=== PATIENT | male | born 1955 | race Caucasian/White ===

== ENCOUNTER 2022-03-16 07:59 | Outpatient (CLI) | payer BC | END 2022-03-16 08:00 | disposition home or self-care (01) | LOC: CSHWCC 07:59 | PROVIDERS: ATTEND Nurse Practitioner Family | DX: L89.893 Pressure ulcer of other site, stage 3 (principal) | CPT/HCPCS: 11042; 99203; G0463 ==

== ENCOUNTER 2022-04-01 08:14 | Outpatient (CLI) | payer BC | END 2022-04-01 08:15 | disposition home or self-care (01) | LOC: CSHWCC 08:14 | PROVIDERS: ATTEND Nurse Practitioner Family | DX: L89.893 Pressure ulcer of other site, stage 3 (principal) | CPT/HCPCS: 11042 ==

== ENCOUNTER 2022-04-19 08:05 | Outpatient (CLI) | payer BC | END 2022-04-19 08:06 | disposition home or self-care (01) | LOC: CSHWCC 08:05 | PROVIDERS: ATTEND Nurse Practitioner Family | DX: L89.893 Pressure ulcer of other site, stage 3 (principal) | CPT/HCPCS: 11042; 99212; G0463 ==

== ENCOUNTER 2022-05-05 15:28 | Outpatient (CLI) | payer BC | END 2022-05-05 15:29 | disposition home or self-care (01) | LOC: CSHWCC 15:28 | PROVIDERS: ATTEND Nurse Practitioner Family | DX: L89.893 Pressure ulcer of other site, stage 3 (principal) ==

== ENCOUNTER 2022-05-23 08:08 | Outpatient (CLI) | payer BC | END 2022-05-23 08:09 | disposition home or self-care (01) | LOC: CSHWCC 08:08 | PROVIDERS: ATTEND Nurse Practitioner Family | DX: L89.893 Pressure ulcer of other site, stage 3 (principal) | CPT/HCPCS: 11042 ==

== ENCOUNTER 2022-07-04 08:03 | Outpatient (CLI) | payer BC | END 2022-07-04 08:04 | disposition home or self-care (01) | LOC: CSHWCC 08:03 | PROVIDERS: ATTEND Nurse Practitioner Family | DX: L89.893 Pressure ulcer of other site, stage 3 (principal) | CPT/HCPCS: 11042 ==

== ENCOUNTER 2022-08-24 09:07 | Outpatient (CLI) | payer MEDICARE, BC | END 2022-08-24 09:08 | disposition home or self-care (01) | LOC: CSHWCC 09:07 | PROVIDERS: ATTEND Nurse Practitioner Family | DX: L89.893 Pressure ulcer of other site, stage 3 (principal); S91.202D Unspecified open wound of left great toe with damage to nail, subsequent encounter | CPT/HCPCS: 29445 ==

== ENCOUNTER 2022-09-26 11:02 | Outpatient (CLI) | payer BC | END 2022-09-26 11:03 | disposition home or self-care (01) | LOC: CSHWCC 11:02 | PROVIDERS: ATTEND Nurse Practitioner Family | DX: L89.893 Pressure ulcer of other site, stage 3 (principal) | CPT/HCPCS: 97597; 99212; G0463 ==

== ENCOUNTER 2022-10-11 09:27 | Outpatient (CLI) | payer BC, MEDICARE | END 2022-10-11 09:28 | disposition home or self-care (01) | LOC: CSHWCC 09:27 | PROVIDERS: ATTEND Nurse Practitioner Family | DX: E11.621 Type 2 diabetes mellitus with foot ulcer (principal); L97.522 Non-pressure chronic ulcer of other part of left foot with fat layer exposed; S81.802S Unspecified open wound, left lower leg, sequela; R60.0 Localized edema | CPT/HCPCS: 11042; 87070; 87186; 87205; 99212; G0463 ==

== ENCOUNTER 2022-10-13 14:47 | Outpatient (CLI) | payer BC, MEDICARE | END 2022-10-13 14:48 | disposition home or self-care (01) | LOC: CSHWCC 14:47 | PROVIDERS: ATTEND Nurse Practitioner Family | DX: S81.802S Unspecified open wound, left lower leg, sequela (principal); R60.0 Localized edema; E11.621 Type 2 diabetes mellitus with foot ulcer; L97.522 Non-pressure chronic ulcer of other part of left foot with fat layer exposed | CPT/HCPCS: 11042; 99213; G0463 ==

== ENCOUNTER 2022-10-18 09:56 | Outpatient (CLI) | payer MEDICARE, BC | END 2022-10-18 09:57 | disposition home or self-care (01) | LOC: CSHWCC 09:56 | PROVIDERS: ATTEND Nurse Practitioner Family | DX: E11.621 Type 2 diabetes mellitus with foot ulcer (principal); S81.802S Unspecified open wound, left lower leg, sequela; L97.522 Non-pressure chronic ulcer of other part of left foot with fat layer exposed; R60.0 Localized edema | CPT/HCPCS: 29581 ==

== ENCOUNTER 2022-10-21 13:04 | Outpatient (CLI) | payer MEDICARE, BC | END 2022-10-21 13:05 | disposition home or self-care (01) | LOC: CSHWCC 13:04 | PROVIDERS: ATTEND Nurse Practitioner Family | DX: E11.621 Type 2 diabetes mellitus with foot ulcer (principal); R60.0 Localized edema; L97.522 Non-pressure chronic ulcer of other part of left foot with fat layer exposed; S81.802S Unspecified open wound, left lower leg, sequela | CPT/HCPCS: 29581 ==

== ENCOUNTER 2022-10-24 12:56 | Outpatient (CLI) | payer MEDICARE, BC | END 2022-10-24 12:57 | disposition home or self-care (01) | LOC: CSHWCC 12:56 | PROVIDERS: ATTEND Nurse Practitioner Family | DX: E11.621 Type 2 diabetes mellitus with foot ulcer (principal); S81.802S Unspecified open wound, left lower leg, sequela; R60.0 Localized edema; L97.522 Non-pressure chronic ulcer of other part of left foot with fat layer exposed | CPT/HCPCS: 29581 ==

== ENCOUNTER 2022-10-27 15:20 | Outpatient (CLI) | payer MEDICARE, BC | END 2022-10-27 15:21 | disposition home or self-care (01) | LOC: CSHWCC 15:20 | PROVIDERS: ATTEND Nurse Practitioner Family | DX: E11.621 Type 2 diabetes mellitus with foot ulcer (principal); R60.0 Localized edema; S81.802S Unspecified open wound, left lower leg, sequela; L97.522 Non-pressure chronic ulcer of other part of left foot with fat layer exposed | CPT/HCPCS: 11042; 29581 ==

== ENCOUNTER 2022-11-03 13:06 | Outpatient (CLI) | payer MEDICARE, BC | END 2022-11-03 13:07 | disposition home or self-care (01) | LOC: CSHWCC 13:06 | PROVIDERS: ATTEND Nurse Practitioner Family | DX: E11.621 Type 2 diabetes mellitus with foot ulcer (principal); R60.0 Localized edema; L97.522 Non-pressure chronic ulcer of other part of left foot with fat layer exposed; S81.802S Unspecified open wound, left lower leg, sequela | CPT/HCPCS: 11042; 29581 ==

== ENCOUNTER 2022-11-10 09:26 | Outpatient (CLI) | payer MEDICARE, BC | END 2022-11-10 09:27 | disposition home or self-care (01) | LOC: CSHWCC 09:26 | PROVIDERS: ATTEND Nurse Practitioner Family | DX: S81.802S Unspecified open wound, left lower leg, sequela (principal); E11.621 Type 2 diabetes mellitus with foot ulcer; L97.522 Non-pressure chronic ulcer of other part of left foot with fat layer exposed; R60.0 Localized edema | CPT/HCPCS: 11042; 29581 ==

== ENCOUNTER 2022-11-17 08:05 | Outpatient (CLI) | payer MEDICARE, BC | END 2022-11-17 08:06 | disposition home or self-care (01) | LOC: CSHWCC 08:05 | PROVIDERS: ATTEND Nurse Practitioner Family | DX: S81.802S Unspecified open wound, left lower leg, sequela (principal); E11.621 Type 2 diabetes mellitus with foot ulcer; L97.522 Non-pressure chronic ulcer of other part of left foot with fat layer exposed | CPT/HCPCS: 11042 ==

== ENCOUNTER 2022-11-24 08:13 | Outpatient (CLI) | payer MEDICARE, BC | END 2022-11-24 08:14 | disposition home or self-care (01) | LOC: CSHWCC 08:13 | PROVIDERS: ATTEND Nurse Practitioner Family | DX: E11.621 Type 2 diabetes mellitus with foot ulcer (principal); L97.522 Non-pressure chronic ulcer of other part of left foot with fat layer exposed; S81.802S Unspecified open wound, left lower leg, sequela; R60.0 Localized edema | CPT/HCPCS: 97597 ==

== ENCOUNTER 2022-12-01 08:13 | Outpatient (CLI) | payer MEDICARE, BC | END 2022-12-01 08:14 | disposition home or self-care (01) | LOC: CSHWCC 08:13 | PROVIDERS: ATTEND Nurse Practitioner Family | DX: E11.621 Type 2 diabetes mellitus with foot ulcer (principal); L97.522 Non-pressure chronic ulcer of other part of left foot with fat layer exposed; S81.802S Unspecified open wound, left lower leg, sequela; R60.0 Localized edema | CPT/HCPCS: 97139; G0463; 99211 ==

== ENCOUNTER 2022-12-12 08:48 | Outpatient (CLI) | payer MEDICARE, BC | END 2022-12-12 08:49 | disposition home or self-care (01) | LOC: CSHWCC 08:48 | PROVIDERS: ATTEND Preventive Medicine Undersea and Hyperbaric Medicine | DX: S81.802A Unspecified open wound, left lower leg, initial encounter (principal); E11.621 Type 2 diabetes mellitus with foot ulcer; L97.522 Non-pressure chronic ulcer of other part of left foot with fat layer exposed; R60.0 Localized edema | CPT/HCPCS: 29445; 97597 ==

== ENCOUNTER 2022-12-20 09:30 | Outpatient (CLI) | payer MEDICARE, BC | END 2022-12-20 09:31 | disposition home or self-care (01) | LOC: CSHWCC 09:30 | PROVIDERS: ATTEND Preventive Medicine Undersea and Hyperbaric Medicine | DX: S81.802S Unspecified open wound, left lower leg, sequela (principal); E11.621 Type 2 diabetes mellitus with foot ulcer; L97.522 Non-pressure chronic ulcer of other part of left foot with fat layer exposed; R60.0 Localized edema | CPT/HCPCS: 99211; G0463 ==

== ENCOUNTER 2022-12-22 13:32 | Outpatient (CLI) | payer MEDICARE, BC | END 2022-12-22 13:33 | disposition home or self-care (01) | LOC: CSHWCC 13:32 | PROVIDERS: ATTEND Preventive Medicine Undersea and Hyperbaric Medicine | DX: E11.621 Type 2 diabetes mellitus with foot ulcer (principal); S81.802S Unspecified open wound, left lower leg, sequela; L97.522 Non-pressure chronic ulcer of other part of left foot with fat layer exposed; R60.0 Localized edema | CPT/HCPCS: 29445 ==

== ENCOUNTER 2023-01-02 15:49 | Inpatient (IN) | payer MEDICARE, BC ==
[2023-01-02 17:02] LABS: #Basophils 0.1 10x3/uL (0.0-0.2); #Eosinphils 0.2 10x3/uL (0.0-0.5); #Monocytes 1.7 10x3/uL (0.0-1.1); #Neutrophils 12.2 10x3/uL (1.5-8.4); %Basophils 0.5 % (0.0-2.0); %Eosinophils 1.5 % (0.0-6.0); %Lymphocytes 6.7 % (18.0-47.0); %Monocytes 11.2 % (0.0-10.0); %Neutrophils 79.4 % (40.0-75.0); Hematocrit 49.7 % (38.8-50.0); Hemoglobin 15.2 g/dL (13.5-17.5); Mean Corpuscular HGB CONC 30.6 g/dL (32.0-36.0); Mean Corpuscular Hemoglobin 22.9 pg (27.0-33.0); Mean Corpuscular Volume 74.8 fl (81.2-95.1); Mean Platelet Volume 10.9 fl (7.4-10.4); Platelet Count 312 10x3/uL (150-450); RBC Distribution Width 19.2 % (11.5-14.5); Red Blood Cell (RBC) Count 6.64 10x6/uL (4.32-5.72); White Blood Cell (WBC) Count 15.3 10x3/uL (3.5-10.5)
[2023-01-02 17:07] LABS: INR-International Normal Ratio 1.5; Prothrombin Time 15.5 sec (9.5-12.1)
[2023-01-02 17:13] LABS: ALT (SGPT) 32 U/L (8-55); AST (SGOT) 34 U/L (5-34); Albumin 3.8 g/dL (3.4-4.8); Alkaline Phosphatase 75 U/L (40-110); Anion Gap 15 mmol/L (10-20); BUN (Urea Nitrogen) 22 mg/dL (8.4-25.7); Bilirubin, Total 1.4 mg/dL (0.2-1.2); Calc. Creatinine Clearance 0 mL/min (70-130); Calcium 9.7 mg/dL (7.8-10.44); Carbon Dioxide 23 mmol/L (23-31); Chloride 98 mmol/L (98-107); Estimated GFR 48; Globulin 4.4 g/dL (2.4-3.5); Glucose 126 mg/dL (80-115); Potassium 3.4 mmol/L (3.5-5.1); Protein, Total 8.2 g/dL (5.8-8.1); Sodium 133 mmol/L (136-145)
[2023-01-02] MEDS ORDERED: Vancomycin 1 GM VIAL ONE (17:40)
[2023-01-02 18:29] LABS: PTT 34.6 sec (22.0-33.0)
[2023-01-02] MEDS ORDERED: Ondansetron PF 4 MG/2 ML Vial IVP PRN (20:39)
[2023-01-02] MEDS ORDERED: Acetaminophen 325 MG TAB PO PRN (20:39)
[2023-01-02] MEDS ORDERED: Acetaminophen 325 MG TAB ONE (20:41)
[2023-01-02] MEDS ORDERED: Cefepime 2 GM in Sodium Chloride 0.9% 100 ML IVPB SCH (21:00)
[2023-01-02] MEDS ORDERED: Enoxaparin 120 MG/0.8 ML SYRINGE SC SCH (21:30)
[2023-01-02 23:11] VITALS: BMI 39.2
[2023-01-02] MEDS ORDERED: tiZANidine HCl 4 MG TAB PO PRN (23:42)
[2023-01-02] MEDS ORDERED: hydrALAZINE 25 MG TAB PO SCH (23:45)
[2023-01-02] MEDS ORDERED: Gabapentin 100 MG CAP PO SCH (23:45)
[2023-01-02] MEDS ORDERED: Nebivolol HCl 5 MG TAB PO SCH (23:45)
[2023-01-02] MEDS: Cefepime 2 GM in Sodium Chloride 0.9% 100 ML IVPB SCH (23:57)
[2023-01-03 04:19] LABS: #Basophils 0.1 10x3/uL (0.0-0.2); #Eosinphils 0.3 10x3/uL (0.0-0.5); #Monocytes 1.6 10x3/uL (0.0-1.1); #Neutrophils 9.7 10x3/uL (1.5-8.4); %Basophils 0.8 % (0.0-2.0); %Eosinophils 2.3 % (0.0-6.0); %Lymphocytes 9.2 % (18.0-47.0); %Monocytes 12.1 % (0.0-10.0); %Neutrophils 74.9 % (40.0-75.0); Anion Gap 14 mmol/L (10-20); BUN (Urea Nitrogen) 20 mg/dL (8.4-25.7); Calc. Creatinine Clearance 96 mL/min (70-130); Calcium 8.4 mg/dL (7.8-10.44); Carbon Dioxide 21 mmol/L (23-31); Chloride 104 mmol/L (98-107); Estimated GFR 57; Glucose 151 mg/dL (80-115); Hematocrit 42.1 % (38.8-50.0); Hemoglobin 12.8 g/dL (13.5-17.5); Mean Corpuscular HGB CONC 30.4 g/dL (32.0-36.0); Mean Corpuscular Hemoglobin 22.6 pg (27.0-33.0); Mean Corpuscular Volume 74.4 fl (81.2-95.1); Mean Platelet Volume 11.2 fl (7.4-10.4); Platelet Count 260 10x3/uL (150-450); Potassium 3.4 mmol/L (3.5-5.1); RBC Distribution Width 18.8 % (11.5-14.5); Red Blood Cell (RBC) Count 5.66 10x6/uL (4.32-5.72); Sodium 136 mmol/L (136-145); White Blood Cell (WBC) Count 12.9 10x3/uL (3.5-10.5)
[2023-01-03] MEDS ORDERED: Potassium Chloride 20 MEQ TAB PO SCH (05:30)
[2023-01-03 05:37] LABS: Magnesium 2.1 mg/dL (1.6-2.6)
[2023-01-03] MEDS: Gabapentin 100 MG CAP PO SCH ×2 (08:46→21:01)
[2023-01-03] MEDS ORDERED: Magnevist 469MG/ML 20 ML VIAL ONE (08:47)
[2023-01-03] MEDS: hydrALAZINE 25 MG TAB PO SCH ×3 (08:48→21:01)
[2023-01-03] MEDS ORDERED: Chlorthalidone 25 MG TAB PO SCH (09:00)
[2023-01-03] MEDS ORDERED: VANCOMYCIN 2 GRAM/400 ML BAG 2 GM in Premix Bag 1 BAG IVPB SCH (09:00)
[2023-01-03] MEDS ORDERED: FLU VACC QS2023(65UP)/MF59C/PF 60 MCG/0.5 ML SYRINGE IM ONE (09:00)
[2023-01-03] MEDS ORDERED: Sodium Chloride 0.65% Nasal 44 ML BOT EA NARE PRN (11:15)
[2023-01-03] MEDS: Cefepime 2 GM in Sodium Chloride 0.9% 100 ML IVPB SCH ×2 (11:44→21:02)
[2023-01-03 15:38] LABS: Hemoglobin A1c 6.6 % (4.0-6.0)
[2023-01-03 17:52] VITALS: BP 140/89; TEMP 97.6
[2023-01-03] MEDS ORDERED: Enoxaparin 120 MG/0.8 ML SYRINGE SC SCH (21:00)
[2023-01-03] MEDS ORDERED: Latanoprost 0.005% Ophth Soln 2.5 ml Bottle EA EYE SCH (21:00)
[2023-01-03] MEDS ORDERED: Nebivolol HCl 5 MG TAB PO SCH (21:00)
[2023-01-05] MEDS ORDERED: Aspirin Chewable 81 MG TAB PO SCH (09:00)
== END 2023-01-03 20:30 | disposition short-term general hospital (02) | DRG 603 ==
LOC: CSHERS 15:49 → CSHTELE 20:25 → OBSVTOIN 20:25
PROVIDERS: ADMIT Internal Medicine; ATTEND Physician Assistant
PROC: 5A09357 Assistance with Respiratory Ventilation, Less than 24 Consecutive Hours, Continuous Positive Airway Pressure (ICD-10-PCS; principal; 2023-01-03)
PROC: 5A09357 Assistance with Respiratory Ventilation, Less than 24 Consecutive Hours, Continuous Positive Airway Pressure (ICD-10-PCS; 2023-01-03)
DX: L03.116 Cellulitis of left lower limb (principal); I50.22 Chronic systolic (congestive) heart failure; I13.0 Hypertensive heart and chronic kidney disease with heart failure and stage 1 through stage 4 chronic kidney disease, or unspecified chronic kidney disease; N17.9 Acute kidney failure, unspecified; I48.20 Chronic atrial fibrillation, unspecified; M71.9 Bursopathy, unspecified; N18.30 Chronic kidney disease, stage 3 unspecified; G89.29 Other chronic pain; E11.42 Type 2 diabetes mellitus with diabetic polyneuropathy; E11.22 Type 2 diabetes mellitus with diabetic chronic kidney disease; E11.621 Type 2 diabetes mellitus with foot ulcer; N18.9 Chronic kidney disease, unspecified; L97.529 Non-pressure chronic ulcer of other part of left foot with unspecified severity; Z79.82 Long term (current) use of aspirin; Z88.8 Allergy status to other drugs, medicaments and biological substances; Z79.01 Long term (current) use of anticoagulants; Z79.899 Other long term (current) drug therapy; Z98.890 Other specified postprocedural states
CPT/HCPCS: 36415; 80048; 80053; 83036; 83605; 83735; 85025; 85610; 85730; 86140; 87040; 90471; 90694; 93005; 93925; 94760; G0008; J0692; J1650; J3370; J3490

== ENCOUNTER 2024-02-07 15:27 | Outpatient (CLI) | payer MEDICARE, BC | END 2024-02-07 15:28 | disposition home or self-care (01) | LOC: CSHULT 15:27 | PROVIDERS: ATTEND Family Medicine | DX: R22.1 Localized swelling, mass and lump, neck (principal) | CPT/HCPCS: 76536 ==